=== PATIENT | male | born 1945 | race Hispanic/Latino ===

== ENCOUNTER 2016-12-18 14:59 | Emergency (ER) | payer OTHER ==
[~2016-12-18] VITALS: Ht 180.3 cm; Wt 81.6 kg
== END 2016-12-18 15:40 | disposition home or self-care (01) ==
LOC: ED 14:59
DX: Z00.00 Encounter for general adult medical examination without abnormal findings (principal); Z85.828 Personal history of other malignant neoplasm of skin
CPT/HCPCS: 99282

== ENCOUNTER 2018-05-20 09:13 | Outpatient (CLI) | payer OTHER ==
[~2018-05-20] VITALS: Ht 180.3 cm; Wt 73.5 kg
[2018-05-20 10:16] LABS: POTASSIUM 4.2 mmol/L (3.6-5.2)
== END 2018-05-20 19:43 | disposition home or self-care (01) ==
LOC: INF 09:13
PROVIDERS: Student in an Organized Health Care Education/Training Program
DX: L03.119 Cellulitis of unspecified part of limb (principal)
CPT/HCPCS: 36591; 80048; 96365; 96366; 96367; J1335; J3370

== ENCOUNTER 2018-05-22 09:12 | Outpatient (CLI) | payer OTHER ==
[~2018-05-22] VITALS: Ht 180.3 cm; Wt 73.5 kg
== END 2018-05-22 19:20 | disposition home or self-care (01) ==
LOC: INF 09:12
DX: L03.119 Cellulitis of unspecified part of limb (principal)
CPT/HCPCS: 36415; 80202; 96365; 96367; J1335; J3370

== ENCOUNTER 2018-05-23 07:43 | Outpatient (CLI) | payer OTHER ==
[~2018-05-23] VITALS: Ht 180.3 cm; Wt 73.5 kg
== END 2018-05-23 19:34 | disposition home or self-care (01) ==
LOC: INF 07:43
DX: L03.119 Cellulitis of unspecified part of limb (principal)
CPT/HCPCS: 96365; 96366; J1335; J3370

== ENCOUNTER 2018-05-24 08:04 | Outpatient (CLI) | payer OTHER ==
[~2018-05-24] VITALS: Ht 180.3 cm; Wt 73.5 kg
[2018-05-24 08:25] VITALS: BP 115/63; TEMP 98.4
[2018-05-24 11:02] VITALS: BP 119/63; TEMP 97.8
== END 2018-05-24 19:04 | disposition home or self-care (01) ==
LOC: INF 08:04
DX: L03.119 Cellulitis of unspecified part of limb (principal)
CPT/HCPCS: 80202; 96365; 96366; 96367; J1335; J3370

== ENCOUNTER 2018-05-26 07:57 | Outpatient (CLI) | payer OTHER ==
[~2018-05-26] VITALS: Ht 180.3 cm; Wt 73.5 kg
== END 2018-05-26 23:09 | disposition home or self-care (01) ==
LOC: INF 07:57
DX: L03.119 Cellulitis of unspecified part of limb (principal)
CPT/HCPCS: 96365; 96367; J1335; J3370

== ENCOUNTER 2018-05-27 09:15 | Outpatient (CLI) | payer OTHER ==
[~2018-05-27] VITALS: Ht 180.3 cm; Wt 73.5 kg
== END 2018-05-27 19:52 | disposition home or self-care (01) ==
LOC: INF 09:15
DX: L03.119 Cellulitis of unspecified part of limb (principal)
CPT/HCPCS: 36591; 80202; 96365; 96366; 96367; J1335; J3370

== ENCOUNTER 2018-05-27 11:43 | Outpatient (CLI) | payer OTHER | END 2018-05-27 19:54 | disposition home or self-care (01) | LOC: RAD 11:43 | DX: M86.172 Other acute osteomyelitis, left ankle and foot (principal) ==

== ENCOUNTER 2018-05-28 07:53 | Outpatient (CLI) | payer OTHER | END 2018-05-28 21:31 | disposition home or self-care (01) | LOC: INF 07:53 | DX: L03.119 Cellulitis of unspecified part of limb (principal) | CPT/HCPCS: 80202; 96365; 96366; 96367; J1335; J3370 ==

== ENCOUNTER 2018-05-29 07:43 | Outpatient (CLI) | payer OTHER | END 2018-05-29 21:08 | disposition home or self-care (01) | LOC: INF 07:43 | DX: L03.119 Cellulitis of unspecified part of limb (principal) | CPT/HCPCS: 96365; 96366; 96367; J1335; J3370 ==